=== PATIENT | male | born 1960 | race Caucasian/White ===

== ENCOUNTER 2021-01-07 14:28 | Emergency (ER) | payer SELFPAY ==
[2021-01-07 14:29] VITALS: BP 185/116; BP 201/116; PULSE 90; RESP 20; TEMP 37.1; O2SAT 96; BMI 24.3
--- NOTE | 2021-01-07 14:35 | HMH.EDGENADL ---
ED Disposition Clinical Impression: Hypertension, essential Ribs, multiple fractures Qualifiers: Encounter type: initial encounter Fracture type: closed Laterality: right Qualified Code(s): S22.41XA - Multiple fractures of ribs, right side, initial encounter for closed fracture Disposition: Home, Self-Care Condition on Discharge: Fair Instructions: DI for Rib Fracture, DI for High Blood Pressure Additional Instructions: Oxycodone as needed for pain. Take lisinopril as prescribed. Use incentive spirometer 4-5 times a day. Additional instructions for RIB INJURIES: See your physician as soon as possible for further evaluation. Hold a pillow against your injured ribs to help with pain when coughing or sneezing. Sleep with several pillows to help support you in the most comfortable position. Take deep breaths frequently. Return immediately if shortness of breath, intolerable pain, coughing of blood, abdominal pain or vomiting. Additional instructions regarding BLOOD PRESSURE: One or more of your blood pressure readings elevated today. Please contact your primary care physician for further evaluation or treatment of your blood pressure. Additional instructions for CONTROLLED SUBSTANCES: You have been prescribed a medication that is a controlled substance. Controlled substances include pain medications known as opiates and sedative nerve medications known as benzodiazepines. Tramadol, fioricet, and gabapentin are also controlled substances. Some common opiates include: Codeine (such as Tylenol #3) Hydrocodone (Vicodin, Lortab, Lorcet, [place]) Oxycodone (Percocet, Percodan, Oxycodone, Oxy IR) Some common benzodiazepines include: Diazepam (Valium) Lorazepam (Ativan) Alprazolam (Xanax) Clonazepam (Klonopin) Oxazepam (Serax) All of these controlled substances are highly addictive and frequently abused. Misuse can and frequently does lead to addiction as well as overdose and . Medication should be stored in a locked cabinet or other secure storage unit. Do not store the medication in a motor vehicle. Short term supplies, 3 days or less, are prescribed because of the highly addictive nature of the medication. Any of the controlled substance medication NOT taken should be disposed of properly and NOT SAVED. The recommended method of disposing of unused medications is: Place the medicines in a sealable plastic bag. If the medicine is a solid, crush it or add water to dissolve it. Add something undesirable (cat litter, coffee grounds, etc.) Dispose of sealed bag in household trash Do not flush or pour unused medicines down a sink or drain. Controlled substances should not be shared, given away or sold. Because of the addictive nature and frequent abuse, these medications are sometimes stolen. These medications should be kept in a safe place where they cannot be stolen. Do not keep them in your car or purse. Lost or stolen prescriptions for controlled substances WILL NOT BE REFILLED in this emergency department, regardless of whether a police report was filed. Prescriptions: Oxycodone HCl [Oxycodone 5mg tab (IR)] 5 mg PO Q4HP PRN #20 tablet PRN Reason: Moderate To Severe Pain Transmission Status: Received by [facility] # lisinopriL [Lisinopril] 10 mg PO DAILY #30 tab Transmission Status: Received by [facility] #[id number] Referrals: Iraida Palacios APRN [Primary Care Provider] - Forms: Work/School Release - Critical Care Critical Care Time: No Attestation: On 01/07/21, the high probability of a clinically significant, sudden or life threatening deterioration of the following system(s) required my full and direct attention, intervention and personal management. The time I documented below is in addition to time spent performing reported procedures but includes the following listed in this critical care notation. Medical Decision Making - Miguel Greenei
--- NOTE | 2021-01-07 14:41 | XR_ITS ---
PROCEDURE: XR RIBS RT MIN 3V W CXR1V CLINICAL INDICATION: fall, rib pain Chest wall pain COMPARISON: CR XR CHEST PORTABLE from 06/07/2019 FINDINGS: The lung gatica are well expanded, there is minimal atelectasis at the left base. There is an old healed fracture of the right 4th rib posteriorly. There are acute essentially nondisplaced fractures of the right 5th through 10th ribs posteriorly. There is no pneumothorax. Cardiac size is normal and vascularity is normal. IMPRESSION: Multiple right rib fractures as noted Dictated by: Dr. James Mosqueda MD 01/07/2021 18:39 Dr. James Mosqueda MD in [place] 01/07/2021 18:39
--- NOTE | 2021-01-07 15:01 | PC.NURSE ---
back from xray
--- NOTE | 2021-01-07 15:15 | PC.NURSE ---
pt instructed on use of incentive spirometer.
[2021-01-07 15:54] VITALS: BP 197/111; PULSE 90; RESP 20; TEMP 36.6; O2SAT 98
== END 2021-01-07 15:56 | disposition home or self-care (01) ==
PROVIDERS: Emergency Provider Emergency Medicine; PCP Nurse Practitioner
DX: S22.41XA Multiple fractures of ribs, right side, initial encounter for closed fracture (principal); W10.9XXA Fall (on) (from) unspecified stairs and steps, initial encounter; Y92.017 Garden or yard in single-family (private) house as the place of occurrence of the external cause; I10 Essential (primary) hypertension; J44.9 Chronic obstructive pulmonary disease, unspecified; Z79.899 Other long term (current) drug therapy
CPT/HCPCS: 71101; 96372; 99282; J2405

== ENCOUNTER 2021-06-28 13:25 | Emergency (ER) | payer BC, SELFPAY ==
[2021-06-28 13:47] VITALS: BP 171/114; PULSE 104; RESP 18; TEMP 36.6; O2SAT 98; BMI 24.7
[2021-06-28 14:13] VITALS: BP 174/96; PULSE 88; RESP 18
--- NOTE | 2021-06-28 14:24 | HMH.EDGENADL ---
ED Disposition Clinical Impression: Sciatic nerve pain Qualifiers: Laterality: left Qualified Code(s): M54.32 - Sciatica, left side Disposition: Home, Self-Care Condition on Discharge: Good Instructions: DI for Sciatica Prescriptions: Hydrocod/Acet 5/325 mg [Loa 5/325mg tablet] 1 tab PO Q6HP PRN #7 tab PRN Reason: Moderate Pain Transmission Status: Received by [facility] # methocarbamoL [Methocarbamol 500mg Tablet] 1,000 mg PO TID #30 tab Transmission Status: Pending to [facility] # Referrals: Tello Painting MD [Primary Care Provider] - - Critical Care Critical Care Time: No Attestation: On 06/28/21, the high probability of a clinically significant, sudden or life threatening deterioration of the following system(s) required my full and direct attention, intervention and personal management. The time I documented below is in addition to time spent performing reported procedures but includes the following listed in this critical care notation. Medical Decision Making - Medical Records Medical records reviewed: Yes: I reviewed the patient's medical records. - Miguel Inquiry Pt receiving controlled substance: Yes Miguel was queried for this patient: Yes Reference #:: [id number] Risks and benefits of using a controlled substance: were discussed with pt by me Vital Signs: 06/28/21 13:47 06/28/21 14:13 Temperature 97.9 F Temperature Source Oral Pulse Rate 88 Pulse Rate [Right Brachial] 104 H Respiratory Rate 18 18 Blood Pressure 174/96 H Blood Pressure [Right Arm] 171/114 H Blood Pressure Mean 123 Blood Pressure Mean [Right Arm] 133 Blood Pressure Source [Right Arm] Automatic Cuff Blood Pressure Position [Right Arm] Sitting 02 Sat by Pulse Oximetry 98 Oxygen Delivery Method Room Air Orders (Tests/Meds): ED MEDICATIONS Discontinued Medications Generic Name Dose Route Start Last Admin Trade Name Freq PRN Reason Stop Dose Admin Diazepam 5 mg 06/28/21 13:48 06/28/21 14:14 Diazepam 5mg Tablet PO 06/28/21 13:49 5 mg ONCE ONE Administration Morphine Sulfate 4 mg 06/28/21 13:48 06/28/21 14:14 Morphine 2mg/Ml Syringe IM 06/28/21 13:49 4 mg ONCE ONE Administration - Reevaluation(s) Time: 14:31 Reevaluation #1: On reevaluation, the patient is feeling much better. Pain is improved. Again, neurologic exam does not show any significant deficit. There is no saddle anesthesia. Patient be discharged short course analgesics. He is up with PCP in 48 hours. Strict return precautions. Verbalized understanding. Medical Decision Narrative: 60-year-old male presented to the emergency department with some lower back pain. Symptoms are consistent with sciatica. Patient has good range of motion. He is amatory at this time. There is no evidence of epidural abscess or spinal cord compression. Patient be treated symptomatically reevaluated. General Adult HPI - General Chief complaint: PAIN Stated complaint: left sided back and hip pain Time Seen by Provider: 06/28/21 13:50 Mode of Arrival: Ambulatory Limitations: No Limitations Description of Symptoms (Recalled from ER Triage Doc. by RN): right lower back and hip pain for over 30 hours, pt states he has hx of sciatica; pt reports foot swelling with pain; last med taken was aleve at 3 am today - History of Present Illness HPI narrative: This is a 60-year-old male presented to the emergency department with some back pain. Patient is a longstanding history of sciatica. He states that yesterday he had a twisting injury while he was walking in his house and has been having some significant pain since then. It starts in the left lower back and radiates all the way down his lower legs. It goes into his foot as well as his knee. Patient states that it feels like he has sciatica, however it is not getting any better. He does not have any focal weakness. He denies any fever
[2021-06-28 15:19] VITALS: BP 170/74; PULSE 82; RESP 16; TEMP 36.8; O2SAT 98
== END 2021-06-28 15:25 | disposition home or self-care (01) ==
PROVIDERS: Emergency Provider Emergency Medicine; PCP Internal Medicine Adolescent Medicine
DX: M54.32 Sciatica, left side (principal); F17.210 Nicotine dependence, cigarettes, uncomplicated
CPT/HCPCS: 96372; 99281

== ENCOUNTER → 2021-07-30 12:39 | Outpatient (CLI) | payer BC, SELFPAY ==
--- NOTE | 2021-07-30 13:06 | US_ITS ---
APPROVED REPORT Exam Type: Lower Extremity Segmental Pressures Traffic Clerk: Marisabel Damian RVT Indications Claudication: Bilaterally Rest Pain: Bilaterally Current Smoker CLAUDICATION AND REST PAIN BILATERAL Risk Factors Hypertension Current Smoker Pressures/Indices Right Indices Left Indices Brachial 128.00 mmHg Brachial 136.00 mmHg Low Thigh 153.00 mmHg 1.13 Low Thigh 157.00 mmHg 1.15 Calf 163.00 mmHg 1.20 Calf 121.00 mmHg 0.89 Ankle(PT) 157.00 mmHg 1.15 Ankle(PT) 99.00 mmHg 0.73 Ankle(DP) 148.00 mmHg 1.09 Ankle(DP) 98.00 mmHg 0.72 Digit 147.00 mmHg 1.08 Digit 92.00 mmHg 0.68 Findings RT CHILANGO:1.15 LT CHILANGO:0.73 RT TBI:1.08 LT TBI:0.68 NORMAL PULSES BILATERAL DAMPANED WAVEFORMS BILATERAL ANKLES Conclusion RT CHILANGO:1.15 LT CHILANGO:0.73 RT TBI:1.08 LT TBI:0.68 NORMAL PULSES BILATERAL DAMPANED WAVEFORMS BILATERAL ANKLES Moderate left side arterial disease Electronically signed by : Lul Chu MD 07/30/2021 15:23:39
== END ==
PROVIDERS: PCP Internal Medicine Adolescent Medicine; Visit Provider Nurse Practitioner Family
DX: I70.213 Atherosclerosis of native arteries of extremities with intermittent claudication, bilateral legs (principal)
CPT/HCPCS: 93923

== ENCOUNTER → 2022-02-27 09:29 | Outpatient (CLI) | payer BC, SELFPAY ==
--- NOTE | 2022-02-27 09:34 | US_ITS ---
FINAL REPORT CLINICAL HISTORY: ABD PAIN-- wt gain FINDINGS: Sonographic images of the abdomen were obtained. The liver has a coarsened hepatic echotexture and a nodular contour consistent with cirrhosis. There is a small to moderate amount of ascites. There is sludge in the gallbladder. The gallbladder wall is borderline at 3 mm. There is no evidence of biliary ductal dilatation. The common hepatic duct measures 3mm, which is within normal limits. Limited images of the pancreas are unremarkable. The spleen size is normal. The right kidney measures 10.3 cm in length. The left kidney measures 10.7 cm in length. There is normal renal echogenicity. There is no evidence of hydronephrosis. The aorta has an unremarkable appearance. Limited images of the inferior vena cava are unremarkable. IMPRESSION: Cirrhosis. Small to moderate ascites. Sludge in the gallbladder. Reviewed, Interpreted and Dictated by Eddie Garcia III, MD Transcribed by Herbert Love Authenticated by Eddie Garcia III, MD on 02/27/2022 12:26:[address] [facility]
== END ==
PROVIDERS: PCP Nurse Practitioner; Visit Provider Nurse Practitioner
DX: R10.9 Unspecified abdominal pain (principal)
CPT/HCPCS: 76700

== ENCOUNTER 2022-04-22 12:44 | Emergency (ER) | payer BC, SELFPAY ==
[2022-04-22] VITALS (7 sets, daily range): BP systolic 123–162; BP diastolic 82–103; PULSE 104–112; RESP 16–20; TEMP 36.8; O2SAT 99–100; BMI 28.8
--- NOTE | 2022-04-22 13:12 | ECG_ITS ---
APPROVED REPORT Exam: Resting ECG HR:107 bpm ECG Measurements Heart Rate 107 AXES DE 131 P 57 QRSd 84 QRS 32 QT 326 T 59 QTc 389 Conclusion SINUS TACHYCARDIA LOW QRS VOLTAGE IN EXTREMITY LEADS [QRS DEFLECTION < 0.5 mV IN LIMB LEADS] ABNORMAL RHYTHM ECG UNCONFIRMED REPORT Electronically signed by : Koko Elizondo MD 04/24/2022 18:00:24
--- NOTE | 2022-04-22 13:14 | XR_ITS ---
FINAL REPORT CLINICAL HISTORY: SOB COMPARISON: January 07, 2021 FINDINGS: The heart size is normal. The mediastinum is normal. There is scarring or atelectasis in the left lung base with a trace pleural effusion. The right lung is clear. There is no pneumothorax. There is no osseous abnormality. IMPRESSION: Left base scarring or atelectasis with a trace left pleural effusion. Reviewed, Interpreted and Dictated by Mk Chaudhry MD Transcribed by Herbert Love Authenticated and [facility]
[2022-04-22 13:31] LABS: Basophils # 0.1 K/mm3 (0-0.2); Basophils % 0.5 % (0.1-2.0); Eosinophils % 0.3 % (0.1-12.0); Hematocrit 34.3 % (42.0-52.0); Hemoglobin 10.7 g/dL (14.1-18.0); Lymphocytes # 1.1 K/mm3 (0.7-4.5); Lymphocytes % 8.6 % (10-50); Mean Corpuscular HGB Conc 31.1 g/dL (31.8-35.4); Mean Corpuscular Hemoglobin 38.5 pg (27.0-31.2); Mean Corpuscular Volume 123.7 fl (80-94); Mean Platelet Volume 8.7 fl (7.4-10.4); Monocytes # 0.5 K/mm3 (0.1-1.0); Monocytes % 3.8 % (1.7-9.3); Neutrophils # 11.1 K/mm3 (1.8-7.8); Neutrophils % 86.7 % (37.0-80.0); Platelet Count 250 K/mm3 (142-424); Red Blood Count 2.78 M/mm3 (4.60-6.20); Red Cell Distribution Width 14.4 % (11.5-17.5); White Blood Count 12.9 K/mm3 (4.8-10.8)
--- NOTE | 2022-04-22 13:32 | PC.NURSE ---
XR AT BEDSIDE FOR CXR
[2022-04-22 13:33] LABS: Chloride 106 mmol/L (98-107); MANUAL DIFFERENTIAL MANUAL DIFFERENTIAL (MANUAL DIFF); Potassium 4.8 mmoL/L (3.5-5.1); Sodium 134 mmol/L (136-145)
[2022-04-22 13:36] LABS: Alanine Aminotransferase 52 U/L (12-78); Albumin Level 2.9 g/dl (3.5-5.0); Albumin/Globulin Ratio 0.6 (1.1-1.8); Alkaline Phosphatase 74 U/L (38-126); Anion Gap 18.8 mEq/L (5-15); Aspartate Amino Transferase 74 U/L (17-59); Bilirubin,Total 5.3 mg/dl (0.2-1.3); Blood Urea Nitrogen 56 mg/dl (9-20); Calcium 9.4 mg/dl (8.4-10.2); Carbon Dioxide 14 mmol/L (22.0-30.0); Creatinine Clearance Estimated 44 mL/min (50-200); Estimated Glomerular Filt Rate 32 ml/min (>60); GFR (African American) 39 ML/MIN (>60); Glucose 143 mg/dl (74-100); Lipase 104 U/L (23-300); Total Protein,Serum 7.9 g/dl (6.3-8.2)
[2022-04-22 13:57] LABS: Coronavirus 19, PCR Not Detected (NotDetected); Influenza A, PCR Not Detected (NotDetected); Influenza B, PCR Not Detected (NotDetected)
--- NOTE | 2022-04-22 13:57 | PC.NURSE ---
At 1350 pt covid swab sent to lab and patient imformed that he is to remain NPO
[2022-04-22 13:59] LABS: Lymphocytes % 4 % (10-50); Macrocytosis 3+; Monocytes % 3 % (2-9); Neutrophils % 93 % (42-76); Nucleated Red Blood Cells 1; Total Cells Counted 100
[2022-04-22 14:02] LABS: Platelet Estimate Normal
--- NOTE | 2022-04-22 14:18 | PC.NURSE ---
Pt c/o nausea at this time. MD advised. 4mg Zofran ordered at this time.
--- NOTE | 2022-04-22 14:21 | PC.NURSE ---
MEDICATED FOR NAUSEA AT THIS TIME, EMESIS BAG PROVIDED
--- NOTE | 2022-04-22 14:40 | PC.NURSE ---
ED MD AT BEDSIDE TO EVALUATE PT
--- NOTE | 2022-04-22 14:56 | CT_ITS ---
FINAL REPORT TECHNIQUE: Axial images through the abdomen and pelvis were performed without contrast. This study was performed with techniques to keep radiation doses as low as reasonably achievable, (ALARA). Individualized dose reduction techniques using automated exposure control or adjustment of mA and/or kV according to the patient's size were employed. CLINICAL HISTORY: pain, ascites FINDINGS: Abdomen: There is a small to moderate hiatal hernia with fluid in the esophagus. There is a moderate left pleural effusion with overlying atelectasis and consolidation. There is a small nodular liver consistent with advanced cirrhosis. There is a large amount of ascites throughout the abdomen and pelvis. The gallbladder is present. The spleen, pancreas, adrenals and kidneys are unremarkable. Pelvis: The urinary bladder is unremarkable. The appendix is not visualized. IMPRESSION: Cirrhosis with marked ascites. Moderate left pleural effusion with overlying atelectasis and consolidation. Reviewed, Interpreted and Dictated by Mk Chaudhry MD Transcribed by Herbert Love Authenticated and [facility]
--- NOTE | 2022-04-22 15:04 | PC.NURSE ---
pt has visitor at the bedside at this time
--- NOTE | 2022-04-22 15:09 | HMH.EDGENADL ---
ED Disposition Clinical Impression: Elevated LFTs, Acute kidney injury Cirrhosis Qualifiers: Hepatic cirrhosis type: other cirrhosis Qualified Code(s): K74.69 - Other cirrhosis of liver Disposition: Left Against Medical Advice Condition on Discharge: Fair Instructions: DI for Cirrhosis Referrals: Iraida Palacios APRN [Primary Care Provider] - - Critical Care Critical Care Time: No Attestation: On 04/22/22, the high probability of a clinically significant, sudden or life threatening deterioration of the following system(s) required my full and direct attention, intervention and personal management. The time I documented below is in addition to time spent performing reported procedures but includes the following listed in this critical care notation. Medical Decision Making - Medical Records Medical records reviewed: Yes: I reviewed the patient's medical records. - Miguel Inquiry Pt receiving controlled substance: No Vital Signs: 04/22/22 12:44 04/22/22 13:30 04/22/22 14:00 Temperature 98.3 F Temperature Source Oral Pulse Rate 104 H Pulse Rate [Right Radial] 111 H Respiratory Rate 18 16 20 Blood Pressure 126/82 135/98 H Blood Pressure [Right Arm] 131/87 Blood Pressure Mean Blood Pressure Mean [Right Arm] 101 Blood Pressure Source [Right Arm] Automatic Cuff Blood Pressure Position [Right Arm] Sitting 02 Sat by Pulse Oximetry 99 100 Oxygen Delivery Method Room Air 04/22/22 14:30 04/22/22 15:00 04/22/22 15:31 Temperature Temperature Source Pulse Rate 112 H 111 H 110 H Pulse Rate [Right Radial] Respiratory Rate 16 16 18 Blood Pressure 123/82 135/90 162/103 H Blood Pressure [Right Arm] Blood Pressure Mean 97 105 122 Blood Pressure Mean [Right Arm] Blood Pressure Source [Right Arm] Blood Pressure Position [Right Arm] 02 Sat by Pulse Oximetry 100 100 99 Oxygen Delivery Method Room Air Room Air - Lab Data Lab Results 04/22/22 13:14: SARS-CoV-2 (PCR) Not detected, Influenza A Untype (PCR) Not detected, Influenza Type B (PCR) Not detected 04/22/22 13:20: WBC 12.9 H, RBC 2.78 L, Hgb 10.7 L, Hct 34.3 L, MCV 123.7 H, MCH 38.5 H, MCHC 31.1 L, RDW 14.4, Plt Count 250, MPV 8.7, Neut % (Auto) 86.7 H, Lymph % (Auto) 8.6 L, Yancey % (Auto) 3.8, Eos % (Auto) 0.3, Baso % (Auto) 0.5, Neut # (Auto) 11.1 H, Lymph # (Auto) 1.1, Yancey # (Auto) 0.5, Eos # (Auto) 0.0, Baso # (Auto) 0.1, Total Counted 100, Neutrophils % (Manual) 93 H, Lymphocytes % (Manual) 4 L, Monocytes % (Manual) 3, Nucleated RBCs 1, Platelet Estimate Normal, RBC Morphology Not Reportable, Macrocytosis 3+ 04/22/22 13:20: Sodium 134 L, Potassium 4.8, Chloride 106, Carbon Dioxide 14 L, Anion Gap 18.8 H, BUN 56 H, Creatinine 2.10 H, Estimated Creat Clear 44, Estimated GFR 32 L, Est GFR ( Amer) 39 L, Glucose 143 H, Calcium 9.4, Total Bilirubin 5.3 H, AST 74 H, ALT 52, Alkaline Phosphatase 74, Total Protein 7.9, Albumin 2.9 L, Globulin 5.0 H, Albumin/Globulin Ratio 0.6 L, Lipase 104 Result diagrams: 04/22/22 13:20 04/22/22 13:20 Orders (Tests/Meds): ED MEDICATIONS Discontinued Medications Generic Name Dose Route Start Last Admin Trade Name Prateekq PRN Reason Stop Dose Admin Ondansetron HCl 4 mg 04/22/22 14:20 04/22/22 14:21 Ondansetron 4mg/2ml Vial IV 04/22/22 14:21 4 mg ONCE ONE Administration Promethazine HCl 25 mg 04/22/22 14:47 04/22/22 14:52 Promethazine Hcl 25mg/Ml 1ml Vial IV 04/22/22 14:48 25 mg ONCE ONE Administration Sodium Chloride 25 ml 04/22/22 14:47 04/22/22 14:52 Sodium Chloride 0.9% 25ml Bag IV 04/22/22 14:48 25 ml ONCE ONE Administration ORDERS Category Date Time Status CT abdomen pelvis wo con Stat Cat Scan 04/22/22 14:56 Taken - Reevaluation(s) Time: 16:05 Reevaluation #1: Upon going to reevaluate the patient, he states that he cannot stay any longer. He wants to leave immediately. I did explain to the patient that nona
--- NOTE | 2022-04-22 15:12 | PC.NURSE ---
checked on pt at this time, assisted to resposition pt in bed. Pt then take to radiology via stretcher
--- NOTE | 2022-04-22 15:22 | PC.NURSE ---
pt return from Ct
--- NOTE | 2022-04-22 15:50 | PC.NURSE ---
went in to update pt , we were still waiting on CT to be read , pt states he wants to leave he knows he is gonna so he wants to go home and asked to sign AMA to leave, family at BS
--- NOTE | 2022-04-22 16:10 | PC.NURSE ---
pt signed out AMA at this time, notified ER of pt leaving AMA.
== END 2022-04-22 16:11 | disposition left against medical advice (07) ==
PROVIDERS: Emergency Provider Emergency Medicine; PCP Nurse Practitioner
DX: R94.5 Abnormal results of liver function studies (principal); N17.9 Acute kidney failure, unspecified; K74.69 Other cirrhosis of liver; Z53.29 Procedure and treatment not carried out because of patient's decision for other reasons; Z72.0 Tobacco use; I10 Essential (primary) hypertension
CPT/HCPCS: 71045; 74176; 80053; 83690; 85007; 85025; 93005; 96374; 96375; 99284; C9803; J2405; U0003; U0005